=== PATIENT | female | born 1935 | race Caucasian/White ===

== ENCOUNTER 2019-01-26 17:20 | Inpatient (IN) | payer OTHER ==
[~2019-01-26] VITALS: Ht 61 cm; Wt 5.0 kg
[~2019-01-26 17:20] MED LIST: AMILORIDE HCL5 MG; ECOTRIN81 MG; IPRATROPIU0.2 MG/1 M IH; LEVOXYL175 MCG; MEDROLPACK PO; NAMENDA XR21 MG; RIVASTIGMINE4.5 MG; XOPENEX0.63 MG/3 IH
--- NOTE | 2019-01-26 18:27 | NUR ---
PTE SE RECIBE POR FEVER TOS CONGESTION NASAL Y MARREO REFIERE PTE.
--- NOTE | 2019-01-26 19:10 | NUR ---
PTE ES EVALUADA POR DR. PEARL QUIEN ORDENA UBICAR A PTE EN UNIDAD DE ASMA. SE CANALIZA A PTE Y SE COLECTAN MUESTRAS DE LABORATORIO BAJO MEDIDAS ASEPTICAS. SE ADMINISTRAN MEDICAMENTOS EMILIA ORDEN MEDICA LOS CUALES PTE TOLERA. ORDEN DE XRAYS.
--- NOTE | 2019-01-27 00:41 | NUR ---
SE RECIBE FEMINA EN ESTADO ESTUPOROSO, SE NOTIFICA A DR. PEARL QUIEN EVALUA PACIENTE. SE COLOCA EN CAMA CON BARANDAS SEGURAS Y ELEVADAS. CONECTADA A MONITOR CARDIACO CON OXIMETRIA DE PULSO. AREA DE VENOPUNCION ADAM DE EDEMA O ENROJECIMIENTO. SE ARIE MUESTRAS DE LABORATORIO ORDENADAS. SE NOTIFICAN ABG Y CT SCAN.
--- NOTE | 2019-01-27 07:39 | NUR ---
PTE FEMENINA ALERTA Y ORIENTADA, ASISTIDA C
--- NOTE | 2019-01-27 07:40 | NUR ---
PTE FEMENINA, ALERTA Y ORIENTADA EN LAS STEVEN ESFERAS, SE OBSERVA CON ASISTENCIA RESPIRATORIA CANULA NASAL A 3LT/MIN. CONECTADA A MONITOR CARDIACO Y OXIMETRIA DE PULSO. SE OBSERVA CON VENOPUNCION LA, IVFS 0.9NSS AT 150ML/HR, AREA DE PUNCION ADAM DE EDEMA Y ERITEMA. PTE EN ESPERA DE CONSULTA CON DR. ROBLERO. SE MANTIEN BAJO OBSERVACION Y CON TRATAMIENTO.
== END 2019-01-30 14:30 | disposition left against medical advice (07) | DRG 202 ==
LOC: ER 17:20 → MEDJ 01-27 10:17
PROVIDERS: ADMIT Internal Medicine
PROC: 3E0F7GC Introduction of Other Therapeutic Substance into Respiratory Tract, Via Natural or Artificial Opening (ICD-10-PCS; principal; 2019-01-27)
PROC: 4A12X4Z Monitoring of Cardiac Electrical Activity, External Approach (ICD-10-PCS; 2019-01-27)
PROC: B345ZZZ Ultrasonography of Bilateral Common Carotid Arteries (ICD-10-PCS; 2019-01-27)
PROC: B030ZZZ Magnetic Resonance Imaging (MRI) of Brain (ICD-10-PCS; 2019-01-27)
PROC: 4A033R1 Measurement of Arterial Saturation, Peripheral, Percutaneous Approach (ICD-10-PCS; 2019-01-28)
DX: J45.41 Moderate persistent asthma with (acute) exacerbation (principal); J80 Acute respiratory distress syndrome; J44.1 Chronic obstructive pulmonary disease with (acute) exacerbation; G93.1 Anoxic brain damage, not elsewhere classified; I10 Essential (primary) hypertension; J20.9 Acute bronchitis, unspecified; E03.8 Other specified hypothyroidism; G30.0 Alzheimer's disease with early onset; F02.80 Dementia in other diseases classified elsewhere, unspecified severity, without behavioral disturbance, psychotic disturbance, mood disturbance, and anxiety
CPT/HCPCS: 70544